=== PATIENT | female | born 1960 | race Caucasian/White ===

== ENCOUNTER 2023-11-07 16:46 | Emergency (ER) | payer BC, SELFPAY ==
[2023-11-07 16:54] VITALS: BP 104/66; PULSE 64; RESP 18; TEMP 36.8; O2SAT 95; BMI 19.9
--- NOTE | 2023-11-07 17:17 | ED.GENADULT ---
HPI - General Adult General Chief complaint: Eye Problems Stated complaint: Eye dr said restricted eye blood flow, bp low Time Seen by Provider: 11/07/23 16:54 Source: patient Mode of arrival: ambulatory Limitations: no limitations History of Present Illness HPI narrative: 63-year-old female with a history of hypertension presents to the ER today with concerns about blood flow. Patient states that she saw an eye doctor earlier today because she has been very light sensitive for a couple of weeks and she was told that she does not have a not blood circulating in her head and getting to her eyes. She states that she was told to follow up with her primary care provider but could not wait because she feels very anxious about this so came to the ER. Of note, her eye point was at 9:00 a.m. today, she presents to the ED at 5:00 p.m. she states that she had just 1 eye exam and dilated in the clinic today, but she tells me that her symptoms feel that they are bilateral. Patient has history of hypertension she takes lisinopril, amlodipine, hydrochlorothiazide. She takes a daily multivitamin. She states that she has had light sensitivity for a couple of weeks. She has also been sleeping very poorly at night, she states that she has decreased energy during the day and sometimes feels lightheaded. She denies vertiginous symptoms. She denies nausea or vomiting. She denies headaches or blurry vision. No changes in her hearing. She denies chest pain or shortness of breath, no abdominal discomfort, no dysuria increased urinary frequency or urgency, no diarrhea or constipation, no skin changes, no focal neurologic deficits, no weakness, no slurred speech or facial asymmetry. No muscle cramps. No gait disturbances. Patient states that she feels anxious all the time and that she is not on any treatment for anxiety. Related Data Home Medications ?Medication ?Instructions ?Recorded ?Confirmed amlodipine 10 mg tablet 10 mg PO DAILY 11/07/23 11/07/23 hydrochlorothiazide 25 mg tablet 25 mg PO DAILY 11/07/23 11/07/23 lisinopril 40 mg tablet 40 mg PO DAILY 11/07/23 11/07/23 Allergies Allergy/AdvReac Type Severity Reaction Status Date / Time No Known Drug Allergies Allergy Verified 11/07/23 17:00 Review of Systems Status of ROS: Reports: 10 or more systems reviewed and unremarkable except as noted in History and below [facility] Social History Smoking Status: Unknown if ever smoked Do you use any of these nicotine containing products: None How often do you have a drink containing alcohol: never How often do you have six or more drinks on one occasion: Never AUDIT-C Alcohol total score: 0 Non-prescribed substance use: denies use Exam Narrative: Exam Narrative: Very Thin, well-developed patient in no acute distress, appears older than stated age. Alert and oriented x3. Patient seems flustered. Thoughts are goal oriented. No tangential or magical thinking noted. Patient speaks in full sentences without needing to catch her breath. Speech is not slurred or pressured. HEENT: Normocephalic atraumatic. Right pupil is dilated. Extraocular muscles are intact. Conjunctivae are moist without any icterus noted. Moist mucous membranes. Posterior pharynx is normal. Neck is soft without any lymphadenopathy or thyromegaly. No masses are appreciated. Cardiovascular: Heart is regular rate and rhythm S1 and S2 are present with a 1 to 2/6 systolic murmur Lungs: Clear to auscultation bilaterally no wheezes rhonchi or rales are appreciated. Patient takes deep breaths without any discomfort. Abdomen: Soft and nontender nondistended with normal bowel sounds. Extremities: Bilateral lower extremities are without edema. Normal DP and PT pulses. Skin: Well perfused without any obvious rashes. Strength is 5/5 of the upper and lower extremities. Reflexes are 2+ and symmetric at the knees. Cranial nerves 3-12 are normal. [id number] is normal. [id number] is normal. There is no nystagmus either horizontally or vertically. Gait is normal. Const: Vital Signs, click to edit/add: Vital Signs - 24 hr 11/07/23 16:54 Temperature 98.3 F Pulse Rate [Pulse Oximeter] 64 Respiratory Rate 18 Blood Pressure [Ri ght Upper Arm] 104/66 Pulse Oximetry 95 Oxygen Delivery Me thod Room Air Course Course ED Course: I did contact the [facility]: Spoke with Dr. Brooks, the grid operator to saw the patient earlier today. He did notice optic nerve pallor bilaterally. He did recommend further workup but he states that all of that has already been scheduled and her next appointment is on the . He states that patient does not need any emergent imaging today from his standpoint. Given the patient's anxiety and just generalized not feeling well for the last couple weeks we did draw some basic blood work: CBC was unremarkable. Chemistry showed hyponatremia with a sodium of 128. LFTs mildly abnormal. Albumin elevated. UA is unremarkable. Discussed these results with the patient and she states that she has been told in the past that her sodium is low. She states that she has had to change some of her blood pressure medication because of it but she can not tell me what medications or when they were changed. Reviewed with her severe and mild symptoms of hyponatremia, patient does not appear to have any of the symptoms. However, because of her low numbers we did give her a L of normal saline today. I did review the hyponatremia treatment algorithm on up-to-date, and outpatient treatment is appropriate for this patient. We also gave her a dose of p.o. Ativan and this helped her anxiety quite a bit, patient stated that she was no longer feeling anxious and re-examination revealed that she was much more calm. As far as her low blood pressure she was 104/66 upon presentation. I did look at her last clinic note from [facility] where her blood pressure was 113 over 67. This could certainly be causing some of her episodes of feeling lightheaded. Given her low blood pressures and hyponatremia I recommend that she hold her hydrochlorothiazide at this time. Vital Signs Vital signs: Initial Vital Signs Temperature 98.3 F 11/07/23 16:54 Temperature Source Temporal Artery Scan 11/07/23 16:54 Pulse Rate 64 11/07/23 16:54 Pulse Rhythm Regular 11/07/23 16:54 Pulse Strength 3+ Normal 11/07/23 16:54 Respiratory Rate 18 11/07/23 16:54 Blood Pressure 104/66 11/07/23 16:54 Blood Pressure Mean 78 11/07/23 16:54 Blood Pressure Position Sitting 11/07/23 16:54 Pulse Oximetry 95 11/07/23 16:54 Oxygen Delivery Method Room Air 11/07/23 16:54 Vital Signs Temperature 98.3 F 11/07/23 16:54 Pulse Rate 64 11/07/23 16:54 Respiratory Rate 18 11/07/23 16:54 Blood Pressure 104/66 11/07/23 16:54 Pulse Oximetry 95 11/07/23 16:54 Oxygen Delivery Method Room Air 11/07/23 16:54 Temperature 98.3 F 11/07/23 16:54 Pulse Rate 64 11/07/23 16:54 Respiratory Rate 18 11/07/23 16:54 Blood Pressure 104/66 11/07/23 16:54 Pulse Oximetry 95 11/07/23 16:54 Oxygen Delivery Method Room Air 11/07/23 16:54 Medications Administered Medications: Generic Name Dose Route Start Last Admin Trade Name Freq PRN Reason Stop Dose Admin Sodium Chloride 1,000 mls @ 1,000 mls/hr 11/07/23 18:15 11/07/23 18:23 0.9 % Sodium Chloride 1000 Ml IV 11/07/23 19:14 1,000 mls/hr .Q1H NELLY Administration Discontinued Medications Generic Name Dose Route Start Last Admin Trade Name Freq PRN Reason Stop Dose Admin Lorazepam 0.5 mg 11/07/23 17:30 11/07/23 17:35 Lorazepam 0.5 Mg Tablet PO 11/07/23 17:31 0.5 mg ONCE ONE Administration Medical Decision Making MDM Narrative Medical decision making narrative: 63-year-old female with spots in her vision and light sensitivity: Patient is getting worked up by Optometry. Hyponatremia treated with normal saline today. Appears to be a chronic issue for her. Low blood pressure recommend that she scale back on her blood pressure medications and follow up with her primary care provider. Lab Data Lab results reviewed: Yes I reviewed the patient's lab results Labs: Lab Results 11/07/23 11/07/23 Range/Units 17:27 17:40 WBC 11.01 H (4.50-11.00) K/uL RBC 4.09 (4.00-5.20) m/uL Hgb 12.8 (12.0-16.0) gm/dL Hct 37.0 (33.0-51.0) % MCV 91 (80-100) fL MCH 31 (26-34) pg MCHC 35 (32-36) gm/dL RDW Coeff of Rick 11.5 (11.5-15.5) % Plt Count 247 (140-440) K/uL Neut % (Auto) 66.6 (42.0-72.0) % Lymph % (Auto) 27.0 (20-44) % [place] % (Auto) 6.1 (0.0-11.0) % Eos % (Auto) 0.2 (0.0-7.0) % Baso % (Auto) 0.0 (0.0-3.0) % Neut # (Auto) 7.30 H (1.7-7.0) K/uL Lymph # (Auto) 3.00 H (0.90-2.90) K/uL [place] # (Auto) 0.70 (0.00-0.90) K/UL Eos # (Auto) 0.00 (0.00-0.50) K/uL Baso # (Auto) 0.00 (0.00-0.30) K/uL Abs Immat Gran (auto) 0.00 (0.00-0.30) K/uL Imm/Tot Granulo (auto) 0.1 % Sodium 128 L (135-149) mmol/L Potassium 4.6 (3.6-5.1) mmol/L Chloride 94 L (96-114) mmol/L Carbon Dioxide 22 (20-32) mmol/L Anion Gap 12 (7-15) mEq/L BUN 22 (7-30) mg/dL Creatinine 0.8 (0.5-1.5) mg/dL Estimated Creat Clear 41.90 Estimated GFR 83 ml/min Glucose 123 H (60-115) mg/dL Calcium 10.4 (8.4-10.6) mg/dL Total Bilirubin 0.9 (0.1-1.5) mg/dL Direct Bilirubin 0.3 (0.0-0.5) mg/dL AST 39 H (12-35) U/L ALT 76 H (4-35) U/L Alkaline Phosphatase 67 (40-150) U/L Total Protein 8.1 (6.0-8.3) g/dL Albumin 5.5 H (3.3-5.0) g/dL Urine Color Yellow (Yellow) Urine Appearance Clear (Clear) Urine pH 5.5 (5.0-8.5) Ur Specific [place] 1.010 (1.000-1.030) Urine Protein Negative (Negative) Urine Glucose (UA) Negative (Negative) Urine Ketones Negative (Negative) Urine Blood Negative (Negative) Urine Nitrite Negative (Negative) Urine Bilirubin Negative (Negative) Urine Urobilinogen 0.2 (0.2-1.0) Ur Leukocyte Esterase Negative (Negative) Urine RBC 0-2 (0-2) Urine WBC 0-2 (0-5) Ur Squamous Epith Cells None (None-Few) Urine Bacteria None (None) Discharge Plan Discharge Clinical Impression: Hyponatremia, Low blood pressure Patient Disposition: Home, Self-Care Condition: Stable Additional Instructions: Your workup found that your sodium levels were low today. Because of this and because of your low blood pressures I recommend that you stop taking your hydrochlorothiazide at this time. You need to follow-up with your primary care provider sometime next week to have a repeat sodium and blood pressure check. You should also discuss your anxiety with your primary care provider. Prescriptions: No Action amlodipine 10 mg tablet 10 mg PO DAILY hydrochlorothiazide 25 mg tablet 25 mg PO DAILY lisinopril 40 mg tablet 40 mg PO DAILY Follow Up/Referrals: Zamzam Valdivia MD [Primary Care Provider] - Stand Alone Forms: [email or web address] Info Instructions
[2023-11-07] MEDS: LORazepam 0.5 MG TABLET PO (17:35)
[2023-11-07 17:47] LABS: Eosinophils Percent Auto 0.2 % (0.0-7.0); Hemoglobin* 12.8 gm/dL (12.0-16.0); Immature Granulocytes Pct Auto 0.1 %; Mean Corpuscular HGB Conc 35 gm/dL (32-36); Mean Corpuscular Hemoglobin 31 pg (26-34); Mean Corpuscular Volume 91 fL (80-100); Monocytes Percent Auto 6.1 % (0.0-11.0); Neutrophils Percent Auto 66.6 % (42.0-72.0); Platelet Count* 247 K/uL (140-440); RDW Coefficient of Variation % 11.5 % (11.5-15.5); Red Blood Count 4.09 m/uL (4.00-5.20); White Blood Count* 11.01 K/uL (4.50-11.00)
[2023-11-07 17:47] LABS: Appearance Urine Clear (Clear); Bilirubin Urine Negative (Negative); Blood Urine Negative (Negative); Color Urine Yellow (Yellow); Glucose Urine Negative (Negative); Ketones Urine Negative (Negative); Leukocyte Esterase Urine Negative (Negative); Nitrite Urine Negative (Negative); Protein Urine Negative (Negative); Urobilinogen Urine 0.2 (0.2-1.0); pH Urine 5.5 (5.0-8.5)
[2023-11-07 17:55] LABS: Slide Review Reflex No
[2023-11-07 17:59] LABS: Chloride* 94 mmol/L (96-114)
[2023-11-07 18:00] LABS: Albumin* 5.5 g/dL (3.3-5.0); Potassium* 4.6 mmol/L (3.6-5.1); Sodium* 128 mmol/L (135-149)
[2023-11-07 18:03] LABS: Alanine Aminotransferase* 76 U/L (4-35); Alkaline Phosphatase* 67 U/L (40-150); Anion Gap 12 mEq/L (7-15); Aspartate Amino Transferase* 39 U/L (12-35); Bilirubin Direct* 0.3 mg/dL (0.0-0.5); Bilirubin Total* 0.9 mg/dL (0.1-1.5); Blood Urea Nitrogen* 22 mg/dL (7-30); Calcium* 10.4 mg/dL (8.4-10.6); Carbon Dioxide* 22 mmol/L (20-32); Creatinine* 0.8 mg/dL (0.5-1.5); Estimated Glomerular Filt Rate 83 ml/min; Glucose* 123 mg/dL (60-115); Total Protein* 8.1 g/dL (6.0-8.3)
[2023-11-07] MEDS: 0.9 % SODIUM CHLORIDE 1000 ml 1,000 ML IV (18:23)
[2023-11-07 18:55] LABS: RBC Urine 0-2 (0-2); WBC Urine 0-2 (0-5)
[2023-11-07 19:16] VITALS: BP 119/69; PULSE 58; RESP 20; O2SAT 99
== END 2023-11-07 19:15 | disposition home or self-care (01) ==
PROVIDERS: Emergency Provider Family Medicine; PCP Obstetrics & Gynecology
DX: I10 Essential (primary) hypertension (principal); E87.1 Hypo-osmolality and hyponatremia
CPT/HCPCS: 36415; 80048; 80076; 81001; 85025; 87086; 99283; 99284; A9270; J7030

== ENCOUNTER 2023-11-09 09:06 | Emergency (ER) | payer BC, SELFPAY ==
[2023-11-09 09:10] VITALS: BP 95/58; PULSE 65; RESP 16; TEMP 36.4; O2SAT 99; BMI 20.1
--- NOTE | 2023-11-09 09:44 | ED.GENADULT ---
HPI - General Adult General Chief complaint: Hypotension Stated complaint: Anxiety, concerns of low sodium Time Seen by Provider: 11/09/23 09:32 Source: patient Mode of arrival: ambulatory Limitations: no limitations History of Present Illness HPI narrative: Patient is a 63-year-old female with a history of hyponatremia and hypertension presenting to the emergency department for a ?buzzing sensation.? States this has been going on for several weeks now. She was seen 2 days ago for similar symptoms that went away after she was given a dose of Ativan. She came to the hospital 2 days ago for concern that she was not giving on off blood flow to her head after she saw the eye doctor. The provider that day spoke to her eye doctor urine was informed that there is no emergent issues and follow-up has already been set up. Patient was unable to get in with her primary care provider this week but does have an appointment scheduled for next week. Denies currently having lightheadedness, dizziness, chest pain, shortness of breath, weakness, numbness, abdominal pain, diarrhea, constipation, vision changes. States she will have intermittent lightheadedness dizziness but currently is not having any. Is concerned her sodium is low. Related Data Home Medications ?Medication ?Instructions ?Recorded ?Confirmed amlodipine 10 mg tablet 10 mg PO DAILY 11/07/23 11/09/23 hydrochlorothiazide 25 mg tablet 25 mg PO DAILY 11/07/23 11/09/23 lisinopril 40 mg tablet 40 mg PO DAILY 11/07/23 11/09/23 Previous Rx's ?Medication ?Instructions ?Recorded hydroxyzine HCl 50 mg tablet 50 mg PO TID PRN #15 tabs 11/09/23 Allergies Allergy/AdvReac Type Severity Reaction Status Date / Time No Known Drug Allergies Allergy Verified 11/09/23 09:09 Review of Systems Status of ROS: Reports: 10 or more systems reviewed and unremarkable except as noted in History and below PFSH PFS Social History Smoking Status: Unknown if ever smoked Do you use any of these nicotine containing products: None How often do you have a drink containing alcohol: never How often do you have six or more drinks on one occasion: Never AUDIT-C Alcohol total score: 0 Non-prescribed substance use: denies use Exam Narrative: Exam Narrative: Const: Well-nourished, Well-developed, in mild distress Eyes: PERRL, no conjunctival injection, and symmetrical lids HENT: Atraumatic external nose and ears. Moist mucous membranes. Neck: Symmetric, trachea midline, No thyromegaly. CVS: RRR, No murmurs or gallops. Peripheral pulses 2+ and equal in all extremities RESP: Unlabored respiratory effort. Clear to auscultation bilaterally. GI: Nontender/Nondistended, No rebound or guarding. MSK:Extremities w/o deformity, Normal Active ROM Skin: Warm, Dry. No rashes or lesions. Neuro: Normal Muscle tone, No focal neurological deficits. Psych: Awake, Alert, & Oriented x3. Appropriate mood and affect. Const: Vital Signs, click to edit/add: Vital Signs - 24 hr 11/09/23 09:10 Temperature 97.5 F L Pulse Rate [Pulse Oximeter] 65 Respiratory Rate 16 Blood Pressure [Ri ght Upper Arm] 95/58 L Pulse Oximetry 99 Oxygen Delivery Me thod Room Air Course Vital Signs Vital signs: Initial Vital Signs Temperature 97.5 F L 11/09/23 09:10 Temperature Source Temporal Artery Scan 11/09/23 09:10 Pulse Rate 65 11/09/23 09:10 Respiratory Rate 16 11/09/23 09:10 Blood Pressure 95/58 L 11/09/23 09:10 Blood Pressure Mean 70 11/09/23 09:10 Blood Pressure Position Sitting 11/09/23 09:10 Pulse Oximetry 99 11/09/23 09:10 Oxygen Delivery Method Room Air 11/09/23 09:10 Vital Signs Temperature 97.5 F L 11/09/23 09:10 Pulse Rate 65 11/09/23 09:10 Respiratory Rate 16 11/09/23 09:10 Blood Pressure 95/58 L 11/09/23 09:10 Pulse Oximetry 99 11/09/23 09:10 Oxygen Delivery Method Room Air 11/09/23 09:10 Temperature 97.5 F L 11/09/23 09:10 Pulse Rate 65 11/09/23 09:10 Respiratory Rate 16 11/09/23 09:10 Blood Pressure 95/58 L 11/09/23 09:10 Pulse Oximetry 99 11/09/23 09:10 Oxygen Delivery Method Room Air 11/09/23 09:10 Medications Administered Medications: Generic Name Dose Route Start Last Admin Trade Name Freapryl PRN Reason Stop Dose Admin Sodium Chloride 1,000 mls @ 1,000 mls/hr 11/09/23 10:00 11/09/23 10:05 0.9 % Sodium Chloride 1000 Ml IV 11/09/23 10:59 1,000 mls/hr .Q1H NELLY Administration Discontinued Medications Generic Name Dose Route Start Last Admin Trade Name Freq PRN Reason Stop Dose Admin Hydroxyzine Pamoate 25 mg 11/09/23 09:34 11/09/23 09:48 Hydroxyzine Pamoate 25 Mg Capsule PO 11/09/23 09:35 25 mg ONCE ONE Administration Medical Decision Making MDM Narrative Medical decision making narrative: Patient is a 63-year-old female presenting to emergency department for concern about low blood pressure and a buzzing sensation. She has difficulty describing with this buzzing sensation is but has been going on for a while. No other symptoms at this time. Is not lightheaded. She is very thin and was recently stopped taking her hydrochlorothiazide the ED doctor's orders 2 days prior. Continues to take amlodipine and lisinopril. She is also concerned about her low sodium. No other symptoms at this time. Will do a CBC, CMP, magnesium. Since symptoms improved with Ativan last time will try some hydroxyzine this even helps with her anxiety. Also give her a L of normal saline. Lab work all returned showing no concerning abnormalities. AST and ALT is slightly elevated but are actually lower than they were 2 days prior. Symptoms improve with the hydroxyzine eating. Considering both times symptoms improved the anti anxiety medication I believe this is likely related to her anxiety. Will give her prescription of hydroxyzine and told her to follow-up with her primary care provider. She is agreeable to this plan. Lab Data Labs: Lab Results 11/09/23 Range/Units 09:45 WBC 8.52 (4.50-11.00) K/uL RBC 4.07 (4.00-5.20) m/uL Hgb 12.7 (12.0-16.0) gm/dL Hct 37.1 (33.0-51.0) % MCV 91 (80-100) fL MCH 31 (26-34) pg MCHC 34 (32-36) gm/dL RDW Coeff of Rick 11.6 (11.5-15.5) % Plt Count 238 (140-440) K/uL Neut % (Auto) 65.5 (42.0-72.0) % Lymph % (Auto) 27.5 (20-44) % [place] % (Auto) 6.5 (0.0-11.0) % Eos % (Auto) 0.4 (0.0-7.0) % Baso % (Auto) 0.0 (0.0-3.0) % Neut # (Auto) 5.59 (1.7-7.0) K/uL Lymph # (Auto) 2.34 (0.90-2.90) K/uL [place] # (Auto) 0.60 (0.00-0.90) K/UL Eos # (Auto) 0.03 (0.00-0.50) K/uL Baso # (Auto) 0.00 (0.00-0.30) K/uL Abs Immat Gran (auto) 0.01 (0.00-0.30) K/uL Imm/Tot Granulo (auto) 0.1 % Sodium 137 (135-149) mmol/L Potassium 4.3 (3.6-5.1) mmol/L Chloride 105 (96-114) mmol/L Carbon Dioxide 22 (20-32) mmol/L Anion Gap 10 (7-15) mEq/L BUN 13 (7-30) mg/dL Creatinine 0.6 (0.5-1.5) mg/dL Estimated Creat Clear 41.90 Estimated GFR 101 ml/min Glucose 123 H (60-115) mg/dL Calcium 9.8 (8.4-10.6) mg/dL Magnesium 1.9 (1.5-2.6) mg/dL Total Bilirubin 0.6 (0.1-1.5) mg/dL AST 36 H (12-35) U/L ALT 67 H (4-35) U/L Alkaline Phosphatase 88 (40-150) U/L Total Protein 7.9 (6.0-8.3) g/dL Albumin 5.3 H (3.3-5.0) g/dL Discharge Plan Discharge Clinical Impression: Low blood pressure Qualifiers: Hypotension type: unspecified hypotension type Qualified Code(s): I95.9 - Hypotension, unspecified Patient Disposition: Home, Self-Care Condition: Stable Additional Instructions: While I cannot say for certain was causing your symptoms considering the medication that your given at your prior ED visit and today both helped with the symptoms I believe part of your symptoms is being caused by anxiety. Will give her a prescription for a medicine that was given today at a higher does. Make sure to follow-up with your primary care provider as soon as you can. Prescriptions: New hydroxyzine HCl 50 mg tablet 50 mg PO TID PRNQty: 15 0RF No Action amlodipine 10 mg tablet 10 mg PO DAILY hydrochlorothiazide 25 mg tablet 25 mg PO DAILY Hold Instructions: held due to recent low bp and hyponatremia lisinopril 40 mg tablet 40 mg PO DAILY Follow Up/Referrals: Zamzam Valdivia MD [Primary Care Provider] - Stand Alone Forms: [employer] Info Instructions
[2023-11-09] MEDS: hydrOXYzine pamoate 25 MG CAPSULE PO (09:48)
[2023-11-09 09:52] LABS: Eosinophils Absolute Auto 0.03 K/uL (0.00-0.50); Eosinophils Percent Auto 0.4 % (0.0-7.0); Hematocrit 37.1 % (33.0-51.0); Hemoglobin* 12.7 gm/dL (12.0-16.0); Immature Granulocytes Abs Auto 0.01 K/uL (0.00-0.30); Immature Granulocytes Pct Auto 0.1 %; Lymphocytes Absolute Auto 2.34 K/uL (0.90-2.90); Lymphocytes Percent Auto 27.5 % (20-44); Mean Corpuscular HGB Conc 34 gm/dL (32-36); Mean Corpuscular Hemoglobin 31 pg (26-34); Mean Corpuscular Volume 91 fL (80-100); Monocytes Percent Auto 6.5 % (0.0-11.0); Neutrophils Absolute Auto 5.59 K/uL (1.7-7.0); Neutrophils Percent Auto 65.5 % (42.0-72.0); Platelet Count* 238 K/uL (140-440); RDW Coefficient of Variation % 11.6 % (11.5-15.5); Red Blood Count 4.07 m/uL (4.00-5.20); White Blood Count* 8.52 K/uL (4.50-11.00)
[2023-11-09 09:55] LABS: Slide Review Reflex No
[2023-11-09] MEDS: 0.9 % SODIUM CHLORIDE 1000 ml 1,000 ML IV (10:05)
[2023-11-09 10:06] LABS: Albumin* 5.3 g/dL (3.3-5.0); Chloride* 105 mmol/L (96-114); Sodium* 137 mmol/L (135-149)
[2023-11-09 10:07] LABS: Potassium* 4.3 mmol/L (3.6-5.1)
[2023-11-09 10:09] LABS: Alanine Aminotransferase* 67 U/L (4-35); Alkaline Phosphatase* 88 U/L (40-150); Anion Gap 10 mEq/L (7-15); Aspartate Amino Transferase* 36 U/L (12-35); Bilirubin Total* 0.6 mg/dL (0.1-1.5); Blood Urea Nitrogen* 13 mg/dL (7-30); Calcium* 9.8 mg/dL (8.4-10.6); Carbon Dioxide* 22 mmol/L (20-32); Creatinine* 0.6 mg/dL (0.5-1.5); Estimated Glomerular Filt Rate 101 ml/min; Glucose* 123 mg/dL (60-115); Magnesium* 1.9 mg/dL (1.5-2.6); Total Protein* 7.9 g/dL (6.0-8.3)
[2023-11-09 11:03] VITALS: BP 111/54; PULSE 58; RESP 18; O2SAT 98
== END 2023-11-09 11:22 | disposition home or self-care (01) ==
PROVIDERS: Emergency Provider Student in an Organized Health Care Education/Training Program; PCP Obstetrics & Gynecology
DX: I95.9 Hypotension, unspecified (principal)
CPT/HCPCS: 36415; 80053; 83735; 85025; 99283; A9270; J7030

== ENCOUNTER 2023-11-13 09:03 | Emergency (ER) | payer BC, SELFPAY ==
[2023-11-13 09:07] VITALS: BP 105/61; PULSE 72; RESP 18; TEMP 37.6; O2SAT 100; BMI 20.5
--- NOTE | 2023-11-13 09:33 | ED.GENADULT ---
HPI - General Adult General Chief complaint: Weakness Stated complaint: Weak, concerns of low sodium, low bp Time Seen by Provider: 11/13/23 09:28 History of Present Illness HPI narrative: This 63-year-old female comes in reporting generalized weakness. She attempted to make an appointment with her primary physician in the clinic but was told to come here. She was seen here in the past few weeks and did have a sodium level that returned at 128. She is taking antihypertensive medicines that do affect her electrolytes. She arrives here with normal vital signs. She is not describing any pain and has no symptoms of infection. She states that she is able to get up and walk but feels more weak recently. Related Data Home Medications ?Medication ?Instructions ?Recorded ?Confirmed amlodipine 10 mg tablet 10 mg PO DAILY 11/07/23 11/09/23 hydrochlorothiazide 25 mg tablet 25 mg PO DAILY 11/07/23 11/09/23 lisinopril 40 mg tablet 40 mg PO DAILY 11/07/23 11/09/23 Previous Rx's ?Medication ?Instructions ?Recorded hydroxyzine HCl 50 mg tablet 50 mg PO TID PRN #15 tabs 11/09/23 Allergies Allergy/AdvReac Type Severity Reaction Status Date / Time No Known Drug Allergies Allergy Verified 11/09/23 09:09 Review of Systems Status of ROS: Reports: 10 or more systems reviewed and unremarkable except as noted in History and below Narrative: Constitutional: No fevers, no weight gain or loss. Eyes: No discharge. No vision changes. HENT: No congestion, no sore throat, no ear pain. Cardiovascular: No chest pain, no palpitations. Respiratory: No shortness of breath, no wheezes, no cough. Gastrointestinal: No abdominal pain, no vomiting, no diarrhea. Genitourinary: No dysuria, no hematuria. Musculoskeletal: Normal range of motion. Skin: No rashes, no pruritis. Neurological: No dizziness, sensory change, speech change. Endo/Heme/Allergies: No bruising or bleeding. No polydipsia. Pysch: no suicidality, no anxiety, no insomnia. All other systems reviewed and are negative. [facility] Social History Smoking Status: Current every day smoker What tobacco products do you use: cigarettes Do you use any of these nicotine containing products: None Second hand tobacco smoke exposure: No How often do you have a drink containing alcohol: never How often do you have six or more drinks on one occasion: Never AUDIT-C Alcohol total score: 0 Non-prescribed substance use: denies use Exam Narrative: Exam Narrative: Constitutional: Well-developed, well-nourished, no acute distress. HEENT: Normocephalic, atraumatic. Neck: Normal range of motion. Nontender. Supple. Heart: Regular. No murmurs. Normal rate. Intact distal pulses. Lungs: Clear to auscultation. No chest discomfort. No wheezes, rhonchi, or rales. Abdomen: Normal bowel sounds. Nontender. No rebound tenderness. Genitalia: Deferred. Back: No midline tenderness. Normal range of motion. Extremities: Normal range of motion. No injury. Skin: Intact. No rash. Warm. No erythema or pallor. Neurologic: No altered sensation. No weakness. Alert and oriented. Psychiatric: No suicidality. No anxiety or depression. No insomnia. Nursing notes and vitals signs are reviewed. Const: Vital Signs, click to edit/add: Vital Signs - 24 hr 11/13/23 09:07 Temperature 99.6 F Pulse Rate [Right Pulse Oximeter] 72 Respiratory Rate 18 Blood Pressure [Ri ght Upper Arm] 105/61 Pulse Oximetry 100 Oxygen Delivery Me thod Room Air Course Vital Signs Vital signs: Initial Vital Signs Temperature 99.6 F 11/13/23 09:07 Temperature Source Temporal Artery Scan 11/13/23 09:07 Pulse Rate 72 11/13/23 09:07 Respiratory Rate 18 11/13/23 09:07 Blood Pressure 105/61 11/13/23 09:07 Blood Pressure Mean 75 11/13/23 09:07 Blood Pressure Position Sitting 11/13/23 09:07 Pulse Oximetry 100 11/13/23 09:07 Oxygen Delivery Method Room Air 11/13/23 09:07 Vital Signs Temperature 99.6 F 11/13/23 09:07 Pulse Rate 72 11/13/23 09:07 Respiratory Rate 18 11/13/23 09:07 Blood Pressure 105/61 11/13/23 09:07 Pulse Oximetry 100 11/13/23 09:07 Oxygen Delivery Method Room Air 11/13/23 09:07 Temperature 99.6 F 11/13/23 09:07 Pulse Rate 72 11/13/23 09:07 Respiratory Rate 18 11/13/23 09:07 Blood Pressure 105/61 11/13/23 09:07 Pulse Oximetry 100 11/13/23 09:07 Oxygen Delivery Method Room Air 11/13/23 09:07 Medical Decision Making MDM Narrative Medical decision making narrative: This patient comes in reporting some generalized feeling of fatigue and weakness. She is able to get up and ambulate without any difficulty. She attempted to get into a clinic but she was redirected here. She arrives with normal vital signs and normal exam. She did have her labs checked a few weeks ago and her sodium was a bit low at 128. This was recheck today and lab results returned with normal findings. Her hemoglobin, platelets, white count, and electrolytes are within normal range. She is okay to be discharged home and encouraged to follow up with her primary physician. She states that she has an appointment with an eye doctor also tomorrow. Lab Data Labs: Lab Results 11/13/23 Range/Units 09:54 WBC 9.80 (4.50-11.00) K/uL RBC 3.92 L (4.00-5.20) m/uL Hgb 12.3 (12.0-16.0) gm/dL Hct 35.7 (33.0-51.0) % MCV 91 (80-100) fL MCH 31 (26-34) pg MCHC 35 (32-36) gm/dL RDW Coeff of Rick 11.8 (11.5-15.5) % Plt Count 236 (140-440) K/uL Neut % (Auto) 67.6 (42.0-72.0) % Lymph % (Auto) 24.5 (20-44) % [place] % (Auto) 7.1 (0.0-11.0) % Eos % (Auto) 0.4 (0.0-7.0) % Baso % (Auto) 0.1 (0.0-3.0) % Neut # (Auto) 6.62 (1.7-7.0) K/uL Lymph # (Auto) 2.40 (0.90-2.90) K/uL [place] # (Auto) 0.70 (0.00-0.90) K/UL Eos # (Auto) 0.04 (0.00-0.50) K/uL Baso # (Auto) 0.01 (0.00-0.30) K/uL Abs Immat Gran (auto) 0.03 (0.00-0.30) K/uL Imm/Tot Granulo (auto) 0.3 % Sodium 136 (135-149) mmol/L Potassium 3.9 (3.6-5.1) mmol/L Chloride 105 (96-114) mmol/L Carbon Dioxide 21 (20-32) mmol/L Anion Gap 10 (7-15) mEq/L BUN 15 (7-30) mg/dL Creatinine 0.7 (0.5-1.5) mg/dL Estimated Creat Clear 41.90 Estimated GFR 98 ml/min Glucose 106 (60-115) mg/dL Calcium 10.0 (8.4-10.6) mg/dL Discharge Plan Discharge Clinical Impression: Feared condition not demonstrated Patient Disposition: Home, Self-Care Condition: Stable Additional Instructions: Continue current plans. Follow up with MD for ongoing management. Return if worsening. Prescriptions: No Action amlodipine 10 mg tablet 10 mg PO DAILY hydrochlorothiazide 25 mg tablet 25 mg PO DAILY Hold Instructions: held due to recent low bp and hyponatremia lisinopril 40 mg tablet 40 mg PO DAILY hydroxyzine HCl 50 mg tablet 50 mg PO TID PRNQty: 15 0RF Follow Up/Referrals: Zamzam Valdivia MD [Primary Care Provider] - Stand Alone Forms: [employer] Info Instructions
[2023-11-13 10:02] LABS: Basophils Absolute Auto 0.01 K/uL (0.00-0.30); Basophils Percent Auto 0.1 % (0.0-3.0); Eosinophils Absolute Auto 0.04 K/uL (0.00-0.50); Eosinophils Percent Auto 0.4 % (0.0-7.0); Hematocrit 35.7 % (33.0-51.0); Hemoglobin* 12.3 gm/dL (12.0-16.0); Immature Granulocytes Abs Auto 0.03 K/uL (0.00-0.30); Immature Granulocytes Pct Auto 0.3 %; Lymphocytes Percent Auto 24.5 % (20-44); Mean Corpuscular HGB Conc 35 gm/dL (32-36); Mean Corpuscular Hemoglobin 31 pg (26-34); Mean Corpuscular Volume 91 fL (80-100); Monocytes Percent Auto 7.1 % (0.0-11.0); Neutrophils Absolute Auto 6.62 K/uL (1.7-7.0); Neutrophils Percent Auto 67.6 % (42.0-72.0); Platelet Count* 236 K/uL (140-440); RDW Coefficient of Variation % 11.8 % (11.5-15.5); Red Blood Count 3.92 m/uL (4.00-5.20)
[2023-11-13 10:03] LABS: Slide Review Reflex No
[2023-11-13 10:17] LABS: Chloride* 105 mmol/L (96-114); Potassium* 3.9 mmol/L (3.6-5.1); Sodium* 136 mmol/L (135-149)
[2023-11-13 10:20] LABS: Creatinine* 0.7 mg/dL (0.5-1.5); Estimated Glomerular Filt Rate 98 ml/min
[2023-11-13 10:21] LABS: Anion Gap 10 mEq/L (7-15); Blood Urea Nitrogen* 15 mg/dL (7-30); Carbon Dioxide* 21 mmol/L (20-32); Glucose* 106 mg/dL (60-115)
== END 2023-11-13 11:22 | disposition home or self-care (01) ==
PROVIDERS: Emergency Provider Emergency Medicine Emergency Medical Services; PCP Obstetrics & Gynecology
DX: Z71.1 Person with feared health complaint in whom no diagnosis is made (principal)
CPT/HCPCS: 36415; 80048; 85025; 99282; 99284